=== PATIENT | female | born 2000 ===

== ENCOUNTER → 2021-02-18 16:05 | Outpatient (CLI) | payer OTHER, SELFPAY ==
[2021-02-18 17:50] LABS: COVID19 -Nasal RAPID Negative (Negative)
== END ==
PROVIDERS: Visit Provider Physician Assistant
DX: Z20.822 Contact with and (suspected) exposure to COVID-19 (principal); J31.2 Chronic pharyngitis
CPT/HCPCS: 87070; 87635